=== PATIENT | male | born 1995 | race Caucasian/White ===

== ENCOUNTER 2021-11-03 09:35 | Emergency (ER) | payer OTHER ==
[~2021-11-03] VITALS: Ht 177.8 cm; Wt 79.4 kg
[2021-11-03] MEDS ORDERED: AMOX500T2 PO (12:53)
[2021-11-03 13:15] VITALS: BP 130/73
== END 2021-11-03 13:17 | disposition home or self-care (01) ==
LOC: ER 09:35
DX: J02.0 Streptococcal pharyngitis (principal); B95.0 Streptococcus, group A, as the cause of diseases classified elsewhere
CPT/HCPCS: 86403; 87400; A4663